=== PATIENT | male | born 1990 | race Caucasian/White ===

== ENCOUNTER 2017-03-24 12:55 | Emergency (ER) | payer BC ==
[2017-03-24 13:46] VITALS: BP 160/90
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
[2017-03-24] MEDS ORDERED: Ibuprofen 800 MG Tab PO ONE (14:00)
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
== END 2017-03-24 15:29 | disposition home or self-care (01) ==
LOC: JP.ED 12:55
DX: S46.912A Strain of unspecified muscle, fascia and tendon at shoulder and upper arm level, left arm, initial encounter (principal); F17.210 Nicotine dependence, cigarettes, uncomplicated; Z88.1 Allergy status to other antibiotic agents; V49.9XXA Car occupant (driver) (passenger) injured in unspecified traffic accident, initial encounter
CPT/HCPCS: 73030; 99284; A9270